=== PATIENT | male | born 1980 ===

== ENCOUNTER → 2021-05-16 | Outpatient (CLI) | payer SELFPAY ==
[2021-05-17 08:12] LABS: HBSAG SCREEN Negative (Negative); HCV ANTIBODY <0.1 (0.0-0.9); HIV AB/P24 AG SCREEN Non Reactive (Non Reactive)
[2021-05-18 10:11] LABS: CHLAMYDIA BY NAA Negative (Negative); GONOCOCCUS BY NAA Negative (Negative); TRICH VAG BY NAA Negative (Negative)
== END ==
LOC: LAB SHORT 12:14
PROVIDERS: Registered Nurse Community Health
DX: Z11.3 Encounter for screening for infections with a predominantly sexual mode of transmission (principal)
CPT/HCPCS: 86592; 86803; 87340; 87389; 87491; 87591; 87661